=== PATIENT | male | born 1965 | race African-American/Black ===

== ENCOUNTER 2019-02-05 22:49 | Emergency (ER) | payer SELFPAY ==
[~2019-02-05] VITALS: Ht 177.8 cm; Wt 91.0 kg
[2019-02-05] MEDS ORDERED: SODIUM CHLORIDE 0.9% 1,000 ML IV ONE (23:52)
[2019-02-06 00:25] LABS: BASOPHILS % 0.6 % (0.0-2.0); EOSINOPHILS % 2.5 % (0.0-5.0); HEMATOCRIT. 33.7 % (42.0-52.0); HEMOGLOBIN. 11.6 g/dL (14.0-18.0); LYMPHOCYTES % 22.1 % (20.0-50.0); MEAN CORPUSCULAR HEMOGLOBIN 32.5 pg (28.0-32.0); MEAN CORPUSCULAR VOLUME 94.6 fL (80.0-94.0); MEAN PLATELET VOLUME 6.1 fl (7.4-10.4); MONOCYTES % 10.6 % (2.0-8.0); NEUTROPHILS % 64.2 % (40.0-76.0); PLATELET 163 x1000/uL (130-400); RED BLOOD CELL COUNT 3.56 mill/uL (4.7-6.1); RED CELL DISTRIBUTION WIDTH 14.2 % (11.6-14.6)
[2019-02-06 00:35] LABS: INR 1.2; PROTHROMBIN TIME 11.8 sec (9.6-11.0)
[2019-02-06 00:37] LABS: CHLORIDE 107 mEq/L (98-107)
[2019-02-06 00:40] LABS: ETHANOL BLOOD 191 mg/dL
[2019-02-06 02:29] VITALS: BP 121/78
== END 2019-02-06 02:47 | disposition home or self-care (01) ==
LOC: ER 22:49
DX: R55 Syncope and collapse (principal); F10.129 Alcohol abuse with intoxication, unspecified; Y90.6 Blood alcohol level of 120-199 mg/100 ml; S80.02XA Contusion of left knee, initial encounter; S80.01XA Contusion of right knee, initial encounter; X58.XXXA Exposure to other specified factors, initial encounter; Y93.89 Activity, other specified; Y92.092 Bedroom in other non-institutional residence as the place of occurrence of the external cause
CPT/HCPCS: 36415; 71045; 73562; 80053; 80320; 82962; 84484; 85025; 85610; 93005; 96360; 96361; 99284; J7030; G0480

== ENCOUNTER 2020-10-05 17:37 | Inpatient (IN) | payer BC ==
[~2020-10-05] VITALS: Ht 177.8 cm; Wt 99.8 kg
[2020-10-05] MEDS ORDERED: KETOROLAC 30MG/ML VIAL IV STA (18:09)
[2020-10-05] MEDS ORDERED: SODIUM CHLORIDE 0.9% 1,000 ML IV ONE (18:15)
[2020-10-05 19:15] LABS: HEMATOCRIT. 44.9 % (42.0-52.0); HEMOGLOBIN. 15.2 g/dL (14.0-18.0); MEAN CORPUSCULAR VOLUME 88.4 fL (80.0-94.0); PLATELET 181 x1000/uL (130-400); RED BLOOD CELL COUNT 5.08 mill/uL (4.7-6.1); RED CELL DISTRIBUTION WIDTH 14.3 % (11.6-14.6)
[2020-10-05 19:28] LABS: CHLORIDE 101 mEq/L (98-107)
[2020-10-05 19:39] LABS: ETHANOL BLOOD 296 mg/dL
[2020-10-05 19:47] LABS: PLATELET ESTIMATE NORMAL
[2020-10-05 19:56] LABS: PHENCYCLIDINE URINE SCREEN NEGATIVE (NEGATIVE)
[2020-10-05 19:57] LABS: *AMPHETAMINES SCREEN URINE NEGATIVE (NEGATIVE); *BARBITURATES SCREEN URINE NEGATIVE (NEGATIVE); *BENZODIAZEPINES SCREEN URINE NEGATIVE (NEGATIVE); *COCAINE SCREEN URINE NEGATIVE (NEGATIVE); CANNABINOID URINE SCREEN NEGATIVE (NEGATIVE); METHADONE URINE SCREEN NEGATIVE (NEGATIVE); OPIATES URINE SCREEN NEGATIVE (NEGATIVE)
[2020-10-05] MEDS ORDERED: ASPIRIN 325MG EC TABLET PO ONE (22:00)
[2020-10-05] MEDS ORDERED: LORAZEPAM 2MG/ML CPJ IV ONE (23:15)
[2020-10-05] MEDS ORDERED: ASPIRIN 325MG EC TABLET PO SCH (23:30)
[2020-10-06 02:35] VITALS: BP 111/86
[2020-10-06] MEDS ORDERED: ASPI-1497 MT (03:20)
[2020-10-06] MEDS ORDERED: ONDANSETRON HCL 4MG/2ML INJ IV PRN (03:30)
[2020-10-06 04:00] VITALS: BP 111/86
[2020-10-06] MEDS: LORAZEPAM 2MG/ML CPJ IV PRN ×2 (04:19→09:17)
[2020-10-06] MEDS: DEXT 5%/0.9% NACL 1,000 ML IV SCH ×2 (04:19→16:30)
[2020-10-06 08:00] VITALS: BP_SYST 118; BP_SYST 145; BP_DIAS 76; BP_DIAS 80
[2020-10-06] MEDS ORDERED: MULTIVITAMINS,THER W-MINERALS TABLET PO SCH (09:00)
[2020-10-06] MEDS ORDERED: THIAMINE HCL 100MG TABLET PO SCH (09:00)
[2020-10-06 10:00] VITALS: BP 112/74
[2020-10-06 10:03] LABS: HEMATOCRIT. 39.2 % (42.0-52.0); HEMOGLOBIN. 13.5 g/dL (14.0-18.0); MEAN CORPUSCULAR HEMOGLOBIN 30.6 pg (28.0-32.0); MEAN CORPUSCULAR VOLUME 88.8 fL (80.0-94.0); MEAN PLATELET VOLUME 7.3 fl (7.4-10.4); PLATELET 138 x1000/uL (130-400); RED BLOOD CELL COUNT 4.41 mill/uL (4.7-6.1); RED CELL DISTRIBUTION WIDTH 14.6 % (11.6-14.6)
[2020-10-06 10:13] LABS: CHLORIDE 101 mEq/L (98-107)
[2020-10-06 10:39] VITALS: BP 112/72
[2020-10-06] MEDS ORDERED: HYDROCODONE/APAP 7.5/325MG 1 TAB TABLET PO PRN (11:00)
[2020-10-06] MEDS ORDERED: ASPIRIN 81MG TABLET PO SCH (12:00)
[2020-10-06 14:28] LABS: PLATELET ESTIMATE NORMAL
[2020-10-06 20:00] VITALS: BP 155/99
[2020-10-06] MEDS ORDERED: CARVEDILOL 6.25 MG TABLET PO SCH (21:00)
== END 2020-10-06 20:20 | disposition left against medical advice (07) | DRG 894 ==
LOC: ER 17:37 → EDBEDREQ 19:16 → 6WST 21:39 → EDBEDREQ 21:45 → ENRESERV 23:26
PROVIDERS: ADMIT Hospitalist; ATTEND Hospitalist
DX: F10.129 Alcohol abuse with intoxication, unspecified (principal); I42.9 Cardiomyopathy, unspecified; F10.139 Alcohol abuse with withdrawal, unspecified; E11.9 Type 2 diabetes mellitus without complications; R79.89 Other specified abnormal findings of blood chemistry; I50.9 Heart failure, unspecified; Y90.8 Blood alcohol level of 240 mg/100 ml or more; M19.90 Unspecified osteoarthritis, unspecified site; Z53.29 Procedure and treatment not carried out because of patient's decision for other reasons; I11.0 Hypertensive heart disease with heart failure; Z86.73 Personal history of transient ischemic attack (TIA), and cerebral infarction without residual deficits; Z82.49 Family history of ischemic heart disease and other diseases of the circulatory system; S43.004A Unspecified dislocation of right shoulder joint, initial encounter; Z91.81 History of falling; R77.8 Other specified abnormalities of plasma proteins
CPT/HCPCS: 36415; 71045; 73030; 80048; 80053; 80305; 80320; 83036; 83880; 84484; 85025; 93005; 93306; 99285; J1885; J2060; J2405; J7030; J7042; G0480